=== PATIENT | male | born 1960 | race Two or more races ===

== ENCOUNTER 2021-09-02 11:28 | Inpatient (IN) | payer BC, OTHER ==
[~2021-09-02] VITALS: Ht 172.7 cm; Wt 121.0 kg
[2021-09-02] MEDS ORDERED: methylPREDNISolone SOD SUCC 125 MG/2 ML VL IV ONE (11:45)
[2021-09-02 12:27] LABS: Basophils # (auto) 0 10 ^3/uL (0-0.2); Basophils % (auto) 0.3 % (0.0-2.0); Eosinophils # (auto) 0.4 10 ^3/uL (0-0.8); Eosinophils % (auto) 3.9 % (0.0-7.0); Hematocrit 50.7 % (41.0-53.0); Hemoglobin 16.3 g/dL (13.5-17.5); Lymphocytes # (auto) 2.4 10 ^3/uL (0.4-5.4); Lymphocytes % (auto) 25.2 % (10.0-50.0); Mean Corpuscular Hemoglobin 25.8 pg (28.0-32.0); Mean Corpuscular Hgb Conc. 32.1 g/dL (32.0-36.0); Mean Corpuscular Volume 80.2 fL (80.0-100.0); Monocytes % (auto) 9.9 % (0.0-12.0); Neutrophils # (auto) 5.9 10 ^3/uL (1.6-8.6); Neutrophils % (auto) 60.7 % (37.0-80.0); Nucleated Red Blood Cells % 0.2 %; Red Blood Cells 6.32 10^6/uL (4.5-5.90); Red Cell Distribution Width 16.4 % (11.8-14.3); White Blood Cell 9.6 10^3/uL (4.4-10.8)
[2021-09-02 12:58] LABS: Albumin 3.4 g/dL (3.4-5.0); Calcium 8.7 mg/dL (8.5-10.1); Potassium 4.5 mmol/L (3.5-5.1)
[2021-09-02 13:06] LABS: BUN/Creatinine Ratio 15.9; Total Protein 7.6 g/dL (6.4-8.2)
[2021-09-02 16:29] LABS: Urine Bacteria NONE SEEN /hpf (None Seen); Urine Blood 1+ /uL (Negative); Urine Specific Gravity 1.009 (1.001-1.035); Urine WBC <1 /hpf (0 - 3)
[2021-09-02] MEDS ORDERED: TIOT1AER IN (16:57)
[2021-09-02] MEDS ORDERED: MAGN400T40 PO (16:57)
[2021-09-02] MEDS ORDERED: THIA100T10 PO (16:57)
[2021-09-02] MEDS ORDERED: RIV20T PO (16:57)
[2021-09-02] MEDS ORDERED: METO25TA5 PO (16:57)
[2021-09-02] MEDS ORDERED: ALBUAER3 IN (16:57)
[2021-09-02] MEDS ORDERED: FOLI1TAB6 PO (16:57)
[2021-09-02] MEDS ORDERED: FLUT1AER3 IN (16:57)
[2021-09-02] MEDS ORDERED: MORPHINE SULFATE INJECTION 2 MG/ML SYRG IV PRN (17:00)
[2021-09-02] MEDS ORDERED: NITROGLYCERIN 0.4 MG SL TAB SL PRN (17:00)
[2021-09-02] MEDS: FUROSEMIDE 100 MG/10ML VIAL IV SCH (18:05)
[2021-09-02 22:00] VITALS: BP 130/79
[2021-09-03 05:00] VITALS: BP 129/78
[2021-09-03 06:03] LABS: Basophils # (auto) 0 10 ^3/uL (0-0.2); Eosinophils # (auto) 0 10 ^3/uL (0-0.8); Lymphocytes # (auto) 1.4 10 ^3/uL (0.4-5.4); Mean Corpuscular Volume 79.9 fL (80.0-100.0); Monocytes # (auto) 0.5 10 ^3/uL (0-1.3); Nucleated Red Blood Cells % 0.1 %; White Blood Cell 10.3 10^3/uL (4.4-10.8)
[2021-09-03] MEDS: FUROSEMIDE 100 MG/10ML VIAL IV SCH ×2 (06:06→18:00)
[2021-09-03 06:07] LABS: Basophils % (auto) 0.1 % (0.0-2.0); Hematocrit 49.4 % (41.0-53.0); Hemoglobin 15.8 g/dL (13.5-17.5); Lymphocytes % (auto) 13.4 % (10.0-50.0); Mean Corpuscular Hemoglobin 25.6 pg (28.0-32.0); Mean Corpuscular Hgb Conc. 32.1 g/dL (32.0-36.0); Monocytes % (auto) 5.3 % (0.0-12.0); Neutrophils # (auto) 8.4 10 ^3/uL (1.6-8.6); Neutrophils % (auto) 81.2 % (37.0-80.0); Red Blood Cells 6.18 10^6/uL (4.5-5.90); Red Cell Distribution Width 16.4 % (11.8-14.3)
[2021-09-03 06:15] LABS: Albumin 3.3 g/dL (3.4-5.0); Potassium 4.7 mmol/L (3.5-5.1)
[2021-09-03 06:19] LABS: Total Protein 7.7 g/dL (6.4-8.2)
[2021-09-03 06:29] LABS: Bilirubin, Total 0.7 mg/dL (0.2-1.0)
[2021-09-03] MEDS ORDERED: DEXTROSE (50%) 50ML SYRG IV PRN (07:30)
[2021-09-03 09:00] VITALS: BP 114/73
[2021-09-03] MEDS ORDERED: ENOXAPARIN SOD 40 MG/0.4 ML SYRINGE SC SCH (10:00)
[2021-09-03] MEDS: InsuLIN REG 1unit/0.01ml Soln (100units/ml) SC SCH ×3 (11:30→22:42)
[2021-09-03] MEDS: ACCU-CHEK COMFORT CURVE STRIP VI SCH ×3 (11:30→22:41)
[2021-09-03 13:00] VITALS: BP 145/82
[2021-09-03] MEDS: METOPROLOL TARTRATE 25 MG TAB PO SCH ×2 (14:00→22:41)
[2021-09-03] MEDS: RIVAROXABAN 20 MG TAB PO SCH (18:00)
[2021-09-03 22:00] VITALS: BP 139/65
[2021-09-04 05:00] VITALS: BP 121/85
[2021-09-04] MEDS: METOPROLOL TARTRATE 25 MG TAB PO SCH ×3 (06:44→22:27)
[2021-09-04] MEDS: InsuLIN REG 1unit/0.01ml Soln (100units/ml) SC SCH ×4 (06:44→22:00)
[2021-09-04] MEDS: ACCU-CHEK COMFORT CURVE STRIP VI SCH ×4 (06:44→22:27)
[2021-09-04] MEDS: cefTRIAXone 1GM/50ML D5W 50 ML IV SCH (09:00)
[2021-09-04] MEDS: AZITHROMYCIN 250 MG TAB PO SCH (10:00)
[2021-09-04] MEDS: FUROSEMIDE 100 MG/10ML VIAL IV SCH (10:00)
[2021-09-04 12:00] VITALS: BP 127/75
[2021-09-04 16:00] VITALS: BP 121/88
[2021-09-04] MEDS: RIVAROXABAN 20 MG TAB PO SCH (18:00)
[2021-09-04 22:00] VITALS: BP 133/85
[2021-09-05 05:00] VITALS: BP 111/80
[2021-09-05] MEDS: InsuLIN REG 1unit/0.01ml Soln (100units/ml) SC SCH ×4 (06:33→22:00)
[2021-09-05] MEDS: ACCU-CHEK COMFORT CURVE STRIP VI SCH ×4 (06:33→22:49)
[2021-09-05] MEDS: METOPROLOL TARTRATE 25 MG TAB PO SCH ×3 (06:42→22:57)
[2021-09-05 08:16] LABS: INR 1.32 (0.9-1.15)
[2021-09-05 08:31] VITALS: BP 107/71
[2021-09-05] MEDS: cefTRIAXone 1GM/50ML D5W 50 ML IV SCH ×2 (10:20→10:34)
[2021-09-05] MEDS: FUROSEMIDE 100 MG/10ML VIAL IV SCH (10:21)
[2021-09-05] MEDS: AZITHROMYCIN 250 MG TAB PO SCH (10:21)
[2021-09-05] MEDS ORDERED: TIOT1AER IN (10:37)
[2021-09-05] MEDS ORDERED: ALBUAER3 IN (10:37)
[2021-09-05 13:00] VITALS: BP 129/88
[2021-09-05] MEDS ORDERED: ALBUTEROL SULF 2.5 MG/0.5ML(0.5%) NEB SOLN NEB PRN (15:00)
[2021-09-05] MEDS ORDERED: IPRATROPIUM BROM 0.5 MG/2.5ML INH SOL NEB PRN (15:00)
[2021-09-05] MEDS ORDERED: THIAMINE HCL 100 MG TAB PO ONE (15:00)
[2021-09-05] MEDS ORDERED: FOLIC ACID 1 MG TAB PO ONE (15:00)
[2021-09-05 16:49] VITALS: BP 115/70
[2021-09-05] MEDS: RIVAROXABAN 20 MG TAB PO SCH (17:31)
[2021-09-05 22:00] VITALS: BP 118/74
[2021-09-05] MEDS ORDERED: BUDESONIDE (INHALATION) 0.5 MG/2 ML NEB NEB SCH (22:00)
[2021-09-05] MEDS: guaiFENesin-DM 100/10mg/5ml SYR PO PRN (23:03)
[2021-09-06 05:00] VITALS: BP 95/67
[2021-09-06] MEDS: ACCU-CHEK COMFORT CURVE STRIP VI SCH ×3 (06:28→17:43)
[2021-09-06] MEDS: InsuLIN REG 1unit/0.01ml Soln (100units/ml) SC SCH ×4 (06:28→22:00)
[2021-09-06] MEDS: METOPROLOL TARTRATE 25 MG TAB PO SCH ×2 (06:41→17:30)
[2021-09-06 07:30] LABS: Potassium 4.2 mmol/L (3.5-5.1)
[2021-09-06 07:35] LABS: Basophils # (auto) 0 10 ^3/uL (0-0.2); Basophils % (auto) 0.3 % (0.0-2.0); Eosinophils # (auto) 0.4 10 ^3/uL (0-0.8); Hemoglobin 15.6 g/dL (13.5-17.5); Mean Corpuscular Hemoglobin 25.8 pg (28.0-32.0); Monocytes # (auto) 1.3 10 ^3/uL (0-1.3); Nucleated Red Blood Cells % 0.2 %; Red Cell Distribution Width 16.5 % (11.8-14.3)
[2021-09-06 07:39] LABS: Eosinophils % (auto) 4.2 % (0.0-7.0); Hematocrit 49.2 % (41.0-53.0); Lymphocytes # (auto) 2.3 10 ^3/uL (0.4-5.4); Lymphocytes % (auto) 22.8 % (10.0-50.0); Mean Corpuscular Hgb Conc. 31.8 g/dL (32.0-36.0); Mean Corpuscular Volume 81.3 fL (80.0-100.0); Neutrophils # (auto) 6.1 10 ^3/uL (1.6-8.6); Neutrophils % (auto) 59.7 % (37.0-80.0); Red Blood Cells 6.06 10^6/uL (4.5-5.90); White Blood Cell 10.2 10^3/uL (4.4-10.8)
[2021-09-06 07:40] LABS: Albumin 3.1 g/dL (3.4-5.0); BUN/Creatinine Ratio 30.3; Bilirubin, Total 1.2 mg/dL (0.2-1.0); Calcium 8.5 mg/dL (8.5-10.1); Magnesium 2.4 mg/dL (1.6-2.6); Total Protein 7.1 g/dL (6.4-8.2)
[2021-09-06 07:50] LABS: INR 1.21 (0.9-1.15)
[2021-09-06 09:00] VITALS: BP 119/59
[2021-09-06] MEDS: FUROSEMIDE 100 MG/10ML VIAL IV SCH (10:16)
[2021-09-06] MEDS: FOLIC ACID 1 MG TAB PO SCH (10:17)
[2021-09-06] MEDS: AZITHROMYCIN 250 MG TAB PO SCH (10:17)
[2021-09-06] MEDS: THIAMINE HCL 100 MG TAB PO SCH (10:17)
[2021-09-06 13:00] VITALS: BP 121/60
[2021-09-06] MEDS: RIVAROXABAN 20 MG TAB PO SCH (17:43)
[2021-09-06] MEDS: guaiFENesin-DM 100/10mg/5ml SYR PO PRN (20:31)
[2021-09-07] MEDS: ACCU-CHEK COMFORT CURVE STRIP VI SCH ×3 (05:52→13:00)
[2021-09-07] MEDS: METOPROLOL TARTRATE 25 MG TAB PO SCH (05:53)
[2021-09-07] MEDS: InsuLIN REG 1unit/0.01ml Soln (100units/ml) SC SCH ×2 (07:00→11:30)
[2021-09-07 09:00] VITALS: BP 11/74
[2021-09-07] MEDS: FUROSEMIDE 100 MG/10ML VIAL IV SCH (10:20)
[2021-09-07] MEDS: FOLIC ACID 1 MG TAB PO SCH (10:21)
[2021-09-07] MEDS: AZITHROMYCIN 250 MG TAB PO SCH (10:21)
[2021-09-07] MEDS: THIAMINE HCL 100 MG TAB PO SCH (10:21)
[2021-09-07] MEDS ORDERED: METF-370 PO (11:54)
[2021-09-07] MEDS ORDERED: FURO1TAB33 PO (11:54)
[2021-09-07] MEDS ORDERED: DOXY-286 PO (11:56)
[2021-09-07] MEDS: cefTRIAXone 1GM/50ML D5W 50 ML IV SCH (12:54)
[2021-09-07 13:00] VITALS: BP 115/68
[2021-09-07 15:41] VITALS: BP 115/68
== END 2021-09-07 18:55 | disposition home or self-care (01) | DRG 193 ==
LOC: ER 11:28 → TELE 16:48 → TELE-WESTW 20:56
PROVIDERS: ADMIT Internal Medicine; ATTEND Internal Medicine
DX: J18.9 Pneumonia, unspecified organism (principal); J96.01 Acute respiratory failure with hypoxia; I50.33 Acute on chronic diastolic (congestive) heart failure; N17.9 Acute kidney failure, unspecified; Z68.41 Body mass index [BMI] 40.0-44.9, adult; J44.0 Chronic obstructive pulmonary disease with (acute) lower respiratory infection; J44.1 Chronic obstructive pulmonary disease with (acute) exacerbation; N18.9 Chronic kidney disease, unspecified; E11.22 Type 2 diabetes mellitus with diabetic chronic kidney disease; E66.01 Morbid (severe) obesity due to excess calories; I48.0 Paroxysmal atrial fibrillation; Z20.822 Contact with and (suspected) exposure to COVID-19; R53.81 Other malaise; Z79.899 Other long term (current) drug therapy; Z83.3 Family history of diabetes mellitus; Z90.49 Acquired absence of other specified parts of digestive tract
CPT/HCPCS: 36415; 36600; 71045; 76700; 80053; 80061; 81001; 82306; 82728; 82805; 82962; 83036; 83605; 83735; 83880; 84443; 84484; 85025; 85379; 85610; 86141; 87040; 87426; 93005; 93306; 96365; 96375; 97116; 97163; 97530; G0378; J0696; J1815

== ENCOUNTER 2023-05-26 09:20 | Inpatient (IN) | payer BC ==
[~2023-05-26] VITALS: Ht 172.7 cm; Wt 105.5 kg
[~2023-05-26 09:20] MED LIST: ALBUAER3 IN; DOXY-286 PO; FLUT1AER3 IN; FOLI-119 PO; MAGN400T40 PO; METF-370 PO; METO25TA5 PO; RIV20T PO; THIA100T10 PO; TIOT1AER IN
[2023-05-26 10:06] LABS: Basophils # (auto) 0 10 ^3/uL (0-0.2); Basophils % (auto) 0.4 % (0.0-2.0); Eosinophils # (auto) 0.1 10 ^3/uL (0-0.8); Eosinophils % (auto) 1.2 % (0.0-7.0); Hemoglobin 15.9 g/dL (13.5-17.5); Lymphocytes # (auto) 2.5 10 ^3/uL (0.4-5.4); Mean Corpuscular Hemoglobin 27.4 pg (28.0-32.0); Mean Corpuscular Hgb Conc. 32.4 g/dL (32.0-36.0); Mean Corpuscular Volume 84.6 fL (80.0-100.0); Monocytes # (auto) 1.3 10 ^3/uL (0-1.3); Monocytes % (auto) 11.3 % (0.0-12.0); Neutrophils # (auto) 7.5 10 ^3/uL (1.6-8.6); Neutrophils % (auto) 65.1 % (37.0-80.0); Nucleated Red Blood Cells % 0.3 %; Red Blood Cells 5.79 10^6/uL (4.5-5.90); Red Cell Distribution Width 18.4 % (11.8-14.3); White Blood Cell 11.5 10^3/uL (4.4-10.8)
[2023-05-26] MEDS ORDERED: SODIUM CHLORIDE 0.9% 1,000 ML IV ONE (10:15)
[2023-05-26 10:22] LABS: Alanine Aminotransferase 21 U/L (7-40); Albumin 4.4 g/dL (3.2-4.8); Alkaline Phosphatase 106 U/L (46-116); Anion Gap 7 (5-15); Aspartate Aminotransferase 18 U/L (13-40); BUN/Creatinine Ratio 11.5 (10.0-20.0); Bilirubin, Total 1.4 mg/dL (0.2-1.0); Blood Urea Nitrogen 11 mg/dL (9-23); Calcium 8.9 mg/dL (8.7-10.4); Carbon Dioxide 26 mmol/L (20-30); Chloride 100 mmol/L (98-107); Glucose 105 mg/dL (74-106); Potassium 3.9 mmol/L (3.5-5.1); Sodium 133 mmol/L (136-145); Total Protein 7.3 g/dL (5.7-8.2)
[2023-05-26 10:52] LABS: INR 1.13 (0.9-1.15); Partial Thromboplastin Time 35.2 SEC (24.5-34.5); Prothrombin Time 11.8 sec (9.3-11.8)
[2023-05-26 10:54] LABS: Urine Bacteria FEW /hpf (None Seen); Urine Blood 3+ /uL (Negative); Urine Clarity HAZY (Clear); Urine Color Yellow (Yellow); Urine Protein, UAD 1+ (Negative); Urine Specific Gravity 1.009 (1.001-1.035); Urine Urobilinogen Normal (Negative); Urine WBC 131 /hpf (0 - 3); Urine WBC Clumps PRESENT /hpf (None Seen)
[2023-05-26 10:58] LABS: Lipase 45 U/L (12-53); Magnesium 1.7 mg/dL (1.6-2.6)
[2023-05-26] MEDS ORDERED: cefTRIAXone 1GM/50ML D5W 50 ML IV ONE (13:45)
[2023-05-26] MEDS ORDERED: DEXTROSE (50%) 50ML SYRG IV PRN (14:30)
[2023-05-26] MEDS ORDERED: ACETAMINOPHEN 325 MG TAB PO PRN (14:30)
[2023-05-26 15:13] LABS: Triglycerides 118 mg/dL (< 150)
[2023-05-26 15:14] LABS: LDL Cholesterol 111 mg/dL (< 100)
[2023-05-26 15:15] LABS: Cholesterol 161 mg/dL (< 200); HDL Cholesterol 38 mg/dL (40-59)
[2023-05-26] MEDS: SODIUM CHLORIDE 0.9% 1,000 ML IV SCH ×2 (15:40→18:22)
[2023-05-26] MEDS: InsuLIN REG 1unit/0.01ml Soln (100units/ml) SC SCH ×2 (17:00→21:38)
[2023-05-26] MEDS: ACCU-CHEK COMFORT CURVE STRIP VI SCH ×2 (17:00→21:35)
[2023-05-26 17:28] VITALS: PULSE 106; RESP 16; O2SAT 95
[2023-05-26] MEDS: RIVAROXABAN 20 MG TAB PO SCH (18:18)
[2023-05-26 18:30] VITALS: PULSE 110; RESP 16; O2SAT 93
[2023-05-26 18:34] VITALS: BP 146/94; PULSE 110; RESP 16; TEMP 98.7; O2SAT 93
[2023-05-26] MEDS: HYDROcodone-ACET 5/325MG TAB PO PRN (18:43)
[2023-05-26] MEDS: METOPROLOL TARTRATE 25 MG TAB PO SCH (19:44)
[2023-05-26 20:00] VITALS: BP 136/75; PULSE 120; PULSE 131; RESP 20; TEMP 97.9; O2SAT 94
[2023-05-26 22:58] VITALS: BP 122/79; PULSE 99; RESP 20; TEMP 97.9; O2SAT 94
[2023-05-27] MEDS: HYDROcodone-ACET 5/325MG TAB PO PRN ×5 (01:17→23:02)
[2023-05-27] MEDS: SODIUM CHLORIDE 0.9% 1,000 ML IV SCH ×3 (03:30→23:20)
[2023-05-27 05:00] VITALS: BP 125/74; PULSE 89; RESP 18; TEMP 97.3; O2SAT 90
[2023-05-27] MEDS: InsuLIN REG 1unit/0.01ml Soln (100units/ml) SC SCH ×4 (05:57→22:00)
[2023-05-27] MEDS: ACCU-CHEK COMFORT CURVE STRIP VI SCH ×4 (05:57→22:54)
[2023-05-27 06:15] LABS: Basophils # (auto) 0.1 10 ^3/uL (0-0.2); Basophils % (auto) 0.5 % (0.0-2.0); Eosinophils # (auto) 0.1 10 ^3/uL (0-0.8); Eosinophils % (auto) 0.6 % (0.0-7.0); Hematocrit 48.3 % (41.0-53.0); Hemoglobin 15.4 g/dL (13.5-17.5); Lymphocytes # (auto) 2.5 10 ^3/uL (0.4-5.4); Lymphocytes % (auto) 20.2 % (10.0-50.0); Mean Corpuscular Hemoglobin 27.2 pg (28.0-32.0); Mean Corpuscular Hgb Conc. 31.9 g/dL (32.0-36.0); Mean Corpuscular Volume 85.2 fL (80.0-100.0); Monocytes # (auto) 1.3 10 ^3/uL (0-1.3); Monocytes % (auto) 10.9 % (0.0-12.0); Neutrophils # (auto) 8.3 10 ^3/uL (1.6-8.6); Neutrophils % (auto) 67.8 % (37.0-80.0); Nucleated Red Blood Cells % 0.1 %; Red Blood Cells 5.68 10^6/uL (4.5-5.90); Red Cell Distribution Width 18.4 % (11.8-14.3); White Blood Cell 12.3 10^3/uL (4.4-10.8)
[2023-05-27] MEDS: METOPROLOL TARTRATE 25 MG TAB PO SCH ×3 (06:23→22:54)
[2023-05-27 06:24] LABS: Alanine Aminotransferase 19 U/L (7-40); Albumin 4.3 g/dL (3.2-4.8); Alkaline Phosphatase 97 U/L (46-116); Anion Gap 8 (5-15); Aspartate Aminotransferase 19 U/L (13-40); BUN/Creatinine Ratio 12.2 (10.0-20.0); Blood Urea Nitrogen 12 mg/dL (9-23); Calcium 8.6 mg/dL (8.7-10.4); Carbon Dioxide 25 mmol/L (20-30); Chloride 100 mmol/L (98-107); Glucose 97 mg/dL (74-106); Potassium 4.4 mmol/L (3.5-5.1); Sodium 133 mmol/L (136-145)
[2023-05-27 06:25] LABS: Bilirubin, Total 1.2 mg/dL (0.2-1.0); Total Protein 7.1 g/dL (5.7-8.2)
[2023-05-27 08:00] VITALS: BP 125/79; PULSE 69; PULSE 82; PULSE 89; RESP 18; TEMP 97.8; O2SAT 94
[2023-05-27] MEDS: cefTRIAXone 1GM/50ML D5W 50 ML IV SCH (09:18)
[2023-05-27] MEDS ORDERED: THIAMINE HCL 100 MG TAB PO SCH (10:00)
[2023-05-27] MEDS ORDERED: FOLIC ACID 1 MG TAB PO SCH (10:00)
[2023-05-27] MEDS ORDERED: MAGNESIUM OXIDE 400 MG TAB PO SCH (10:00)
[2023-05-27 12:58] VITALS: BP 117/62; PULSE 74; RESP 19; TEMP 97; O2SAT 94
[2023-05-27] MEDS: chlordiazePOXIDE HCL 25 MG CAP PO SCH ×2 (13:52→22:54)
[2023-05-27 17:03] VITALS: BP 116/60; PULSE 80; RESP 19; TEMP 97.9; O2SAT 98
[2023-05-27] MEDS: RIVAROXABAN 20 MG TAB PO SCH (17:19)
[2023-05-27] MEDS ORDERED: TAMSULOSIN HYDROCHLORIDE 0.4 MG CAP PO SCH (18:54)
[2023-05-27 20:00] VITALS: PULSE 72; RESP 20; O2SAT 94
[2023-05-27 22:00] VITALS: BP 138/72; PULSE 68; RESP 17; TEMP 96.5; O2SAT 95
[2023-05-28 05:00] VITALS: BP 118/82; PULSE 83; RESP 16; TEMP 97.4; O2SAT 92
[2023-05-28] MEDS: chlordiazePOXIDE HCL 25 MG CAP PO SCH (06:08)
[2023-05-28] MEDS: METOPROLOL TARTRATE 25 MG TAB PO SCH (06:09)
[2023-05-28] MEDS: ACCU-CHEK COMFORT CURVE STRIP VI SCH (06:09)
[2023-05-28] MEDS: InsuLIN REG 1unit/0.01ml Soln (100units/ml) SC SCH (06:11)
[2023-05-28] MEDS: SODIUM CHLORIDE 0.9% 1,000 ML IV SCH (06:12)
[2023-05-28 08:00] VITALS: BP 118/69; PULSE 69; PULSE 76; RESP 18; TEMP 97.4; O2SAT 95
[2023-05-28] MEDS ORDERED: THIA100T13 PO (08:44)
[2023-05-28] MEDS ORDERED: TAMS-35 PO (08:44)
[2023-05-28] MEDS ORDERED: CIPR-173 PO (08:44)
[2023-05-28] MEDS ORDERED: CHL25C PO (08:44)
[2023-05-28 09:00] VITALS: BP 117/69; PULSE 76; RESP 18; TEMP 97.4; O2SAT 95
[2023-05-28] MEDS: cefTRIAXone 1GM/50ML D5W 50 ML IV SCH (09:25)
[2023-05-28] MEDS ORDERED: chlordiazePOXIDE HCL 25 MG CAP PO SCH (10:00)
[2023-05-28] MEDS: HYDROcodone-ACET 5/325MG TAB PO PRN (10:47)
[2023-05-28] MEDS ORDERED: FOLIC ACID 1 MG, MULTIPLE VITAMIN 10 ML, MAGNESIUM SULF SDV 50% 8 MEQ, THIAMINE INJ 100... INJ SCH ×5 (12:00)
[2023-05-29] MEDS ORDERED: chlordiazePOXIDE HCL 25 MG CAP PO SCH (10:00)
[2023-05-30] MEDS ORDERED: chlordiazePOXIDE HCL 25 MG CAP PO SCH (07:00)
== END 2023-05-28 12:05 | disposition home or self-care (01) | DRG 689 ==
LOC: ER 09:20 → TELE 14:43 → TELE-CENTR 18:05
PROVIDERS: ADMIT Nurse Practitioner Family; ATTEND Family Medicine
DX: N30.01 Acute cystitis with hematuria (principal); I50.33 Acute on chronic diastolic (congestive) heart failure; N12 Tubulo-interstitial nephritis, not specified as acute or chronic; J44.1 Chronic obstructive pulmonary disease with (acute) exacerbation; N17.9 Acute kidney failure, unspecified; I11.0 Hypertensive heart disease with heart failure; N40.0 Benign prostatic hyperplasia without lower urinary tract symptoms; B96.20 Unspecified Escherichia coli [E. coli] as the cause of diseases classified elsewhere; E86.0 Dehydration; I48.91 Unspecified atrial fibrillation; E66.01 Morbid (severe) obesity due to excess calories; F10.129 Alcohol abuse with intoxication, unspecified; Y90.9 Presence of alcohol in blood, level not specified; E11.65 Type 2 diabetes mellitus with hyperglycemia; Z79.2 Long term (current) use of antibiotics; Z79.899 Other long term (current) drug therapy; Z79.01 Long term (current) use of anticoagulants; Z68.35 Body mass index [BMI] 35.0-35.9, adult; Z83.3 Family history of diabetes mellitus
CPT/HCPCS: 36415; 71046; 74176; 80053; 80061; 80320; 81001; 82962; 83036; 83690; 83735; 84443; 85025; 85610; 85730; 87040; 87086; 87088; 87186; 93005; G0378; J0696; J1815

== ENCOUNTER 2023-05-29 05:31 | Inpatient (IN) | payer BC ==
[~2023-05-29] VITALS: Ht 172.7 cm; Wt 116.5 kg
[~2023-05-29 05:31] MED LIST changes: +CHL25C PO; +CIPR-173 PO; +TAMS-35 PO; +THIA100T13 PO
[2023-05-29 06:48] LABS: Urine Bacteria FEW /hpf (None Seen); Urine Blood Negative /uL (Negative); Urine Clarity Clear (Clear); Urine Color Colorless (Yellow); Urine Protein, UAD Negative (Negative); Urine Specific Gravity 1.006 (1.001-1.035); Urine Urobilinogen Normal (Negative); Urine WBC 3 /hpf (0 - 3)
[2023-05-29] MEDS ORDERED: FUROSEMIDE 40 MG/4 ML VIAL IV ONE (07:30)
[2023-05-29] MEDS ORDERED: cefTRIAXone 1GM/50ML D5W 50 ML IV ONE (07:45)
[2023-05-29 08:33] LABS: Basophils # (auto) 0 10 ^3/uL (0-0.2); Basophils % (auto) 0.2 % (0.0-2.0); Eosinophils # (auto) 0 10 ^3/uL (0-0.8); Eosinophils % (auto) 0.2 % (0.0-7.0); Hematocrit 44.5 % (41.0-53.0); Hemoglobin 14.2 g/dL (13.5-17.5); Lymphocytes # (auto) 1.1 10 ^3/uL (0.4-5.4); Lymphocytes % (auto) 10.5 % (10.0-50.0); Mean Corpuscular Hemoglobin 27.4 pg (28.0-32.0); Mean Corpuscular Hgb Conc. 31.9 g/dL (32.0-36.0); Mean Corpuscular Volume 85.9 fL (80.0-100.0); Monocytes # (auto) 1.2 10 ^3/uL (0-1.3); Monocytes % (auto) 11.6 % (0.0-12.0); Neutrophils % (auto) 77.5 % (37.0-80.0); Nucleated Red Blood Cells % 0.1 %; Red Blood Cells 5.18 10^6/uL (4.5-5.90); Red Cell Distribution Width 18.2 % (11.8-14.3); White Blood Cell 10.3 10^3/uL (4.4-10.8)
[2023-05-29 08:50] VITALS: PULSE 110; RESP 20; O2SAT 88; O2SAT 94
[2023-05-29 09:12] LABS: Alanine Aminotransferase 23 U/L (7-40); Albumin 4.1 g/dL (3.2-4.8); Alkaline Phosphatase 84 U/L (46-116); Anion Gap 9 (5-15); Aspartate Aminotransferase 20 U/L (13-40); BUN/Creatinine Ratio 14.1 (10.0-20.0); Bilirubin, Total 0.7 mg/dL (0.2-1.0); Blood Urea Nitrogen 12 mg/dL (9-23); Calcium 8.8 mg/dL (8.5-10.1); Carbon Dioxide 22 mmol/L (20-30); Chloride 106 mmol/L (98-107); Glucose 107 mg/dL (74-106); Potassium 4.3 mmol/L (3.5-5.1); Sodium 137 mmol/L (136-145); Total Protein 6.4 g/dL (5.7-8.2)
[2023-05-29] MEDS ORDERED: DEXTROSE (50%) 50ML SYRG IV PRN (11:15)
[2023-05-29] MEDS ORDERED: NITROGLYCERIN 0.4 MG SL TAB SL PRN (11:15)
[2023-05-29] MEDS ORDERED: MORPHINE SULFATE INJ 2 MG/ml SYRG IV PRN (11:15)
[2023-05-29] MEDS ORDERED: ACETAMINOPHEN 325 MG TAB PO PRN (11:15)
[2023-05-29] MEDS: ACCU-CHEK COMFORT CURVE STRIP VI SCH ×2 (11:30→17:00)
[2023-05-29] MEDS: InsuLIN REG 1unit/0.01ml Soln (100units/ml) SC SCH ×2 (11:30→20:33)
[2023-05-29] MEDS ORDERED: ALBUTEROL MEDNEB 2.5 mg/3ml NEB NEB PRN (11:45)
[2023-05-29 11:46] VITALS: BP 144/79; PULSE 108; RESP 18; TEMP 98.8; O2SAT 91
[2023-05-29 11:52] VITALS: O2SAT 91
[2023-05-29 19:21] VITALS: O2SAT 94
[2023-05-29] MEDS: chlordiazePOXIDE HCL 25 MG CAP PO SCH (20:30)
[2023-05-29] MEDS: METOPROLOL TARTRATE 25 MG TAB PO SCH (20:31)
[2023-05-29] MEDS: HYDROcodone-ACET 5/325MG TAB PO PRN (21:28)
[2023-05-30] VITALS (8 sets, daily range): BP systolic 133; BP diastolic 85; PULSE 90–109; RESP 20–28; TEMP 97.7; O2SAT 92–96
[2023-05-30] MEDS: InsuLIN REG 1unit/0.01ml Soln (100units/ml) SC SCH ×5 (00:23→22:55)
[2023-05-30] MEDS: ACCU-CHEK COMFORT CURVE STRIP VI SCH ×5 (00:23→22:40)
[2023-05-30] MEDS: chlordiazePOXIDE HCL 25 MG CAP PO SCH ×4 (00:36→22:41)
[2023-05-30] MEDS: METOPROLOL TARTRATE 25 MG TAB PO SCH ×4 (00:36→22:41)
[2023-05-30] MEDS: metFORMIN HYDROCHLORIDE 500 MG TAB PO SCH ×3 (00:37→22:41)
[2023-05-30] MEDS: HYDROcodone-ACET 5/325MG TAB PO PRN (04:04)
[2023-05-30 07:03] LABS: Basophils # (auto) 0 10 ^3/uL (0-0.2); Basophils % (auto) 0.5 % (0.0-2.0); Eosinophils # (auto) 0.3 10 ^3/uL (0-0.8); Eosinophils % (auto) 3.6 % (0.0-7.0); Hematocrit 42.8 % (41.0-53.0); Lymphocytes % (auto) 23.3 % (10.0-50.0); Mean Corpuscular Hemoglobin 28.1 pg (28.0-32.0); Mean Corpuscular Hgb Conc. 32.6 g/dL (32.0-36.0); Monocytes # (auto) 1.2 10 ^3/uL (0-1.3); Monocytes % (auto) 13.4 % (0.0-12.0); Neutrophils # (auto) 5.2 10 ^3/uL (1.6-8.6); Neutrophils % (auto) 59.2 % (37.0-80.0); Nucleated Red Blood Cells % 0.2 %; Red Blood Cells 4.98 10^6/uL (4.5-5.90); Red Cell Distribution Width 18.2 % (11.8-14.3); White Blood Cell 8.8 10^3/uL (4.4-10.8)
[2023-05-30 07:10] LABS: Alanine Aminotransferase 21 U/L (7-40); Alkaline Phosphatase 73 U/L (46-116); Anion Gap 8 (5-15); Aspartate Aminotransferase 11 U/L (13-40); BUN/Creatinine Ratio 10.7 (10.0-20.0); Bilirubin, Total 0.9 mg/dL (0.2-1.0); Blood Urea Nitrogen 11 mg/dL (9-23); Calcium 8.7 mg/dL (8.5-10.1); Carbon Dioxide 27 mmol/L (20-30); Chloride 103 mmol/L (98-107); Glucose 108 mg/dL (74-106); Potassium 3.4 mmol/L (3.5-5.1); Sodium 138 mmol/L (136-145); Total Protein 6.6 g/dL (5.7-8.2)
[2023-05-30] MEDS: cefTRIAXone 1GM/50ML D5W 50 ML IV SCH (09:43)
[2023-05-30] MEDS: RIVAROXABAN 20 MG TAB PO SCH (10:34)
[2023-05-30] MEDS: TAMSULOSIN HYDROCHLORIDE 0.4 MG CAP PO SCH (10:35)
[2023-05-30] MEDS: FOLIC ACID 1 MG TAB PO SCH (10:35)
[2023-05-30] MEDS: MAGNESIUM OXIDE 400 MG TAB PO SCH (10:35)
[2023-05-30] MEDS: THIAMINE HCL 100 MG TAB PO SCH (10:35)
[2023-05-30] MEDS ORDERED: FUROSEMIDE 20 MG/2 ML VIAL IV ONE (14:00)
[2023-05-30] MEDS: FUROSEMIDE 20 MG/2 ML VIAL IV SCH (18:31)
[2023-05-31] VITALS (10 sets, daily range): BP systolic 112–134; BP diastolic 68–85; PULSE 76–99; RESP 17–19; TEMP 97.1–98.5; O2SAT 90–98
[2023-05-31] MEDS: FUROSEMIDE 20 MG/2 ML VIAL IV SCH ×2 (05:52→17:44)
[2023-05-31] MEDS: chlordiazePOXIDE HCL 25 MG CAP PO SCH ×3 (05:52→21:46)
[2023-05-31] MEDS: HYDROcodone-ACET 5/325MG TAB PO PRN ×2 (05:52→20:34)
[2023-05-31] MEDS: METOPROLOL TARTRATE 25 MG TAB PO SCH ×3 (05:52→21:46)
[2023-05-31] MEDS: ACCU-CHEK COMFORT CURVE STRIP VI SCH ×4 (06:00→22:00)
[2023-05-31] MEDS: InsuLIN REG 1unit/0.01ml Soln (100units/ml) SC SCH ×4 (06:00→21:42)
[2023-05-31 06:22] LABS: Alanine Aminotransferase 28 U/L (7-40); Alkaline Phosphatase 71 U/L (46-116); Calcium 8.8 mg/dL (8.5-10.1); Carbon Dioxide 26 mmol/L (20-30); Chloride 104 mmol/L (98-107); Triglycerides 93 mg/dL (< 150)
[2023-05-31 06:23] LABS: Albumin 3.7 g/dL (3.2-4.8); Anion Gap 7 (5-15); Aspartate Aminotransferase 26 U/L (13-40); BUN/Creatinine Ratio 19.1 (10.0-20.0); Bilirubin, Total 0.5 mg/dL (0.2-1.0); Blood Urea Nitrogen 17 mg/dL (9-23); Cholesterol 131 mg/dL (< 200); Glucose 87 mg/dL (74-106); HDL Cholesterol 35 mg/dL (40-59); LDL Cholesterol 81 mg/dL (< 100); Potassium 4.4 mmol/L (3.5-5.1); Sodium 137 mmol/L (136-145)
[2023-05-31 06:37] LABS: Magnesium 1.9 mg/dL (1.6-2.6)
[2023-05-31] MEDS: TAMSULOSIN HYDROCHLORIDE 0.4 MG CAP PO SCH (09:13)
[2023-05-31] MEDS: RIVAROXABAN 20 MG TAB PO SCH (09:13)
[2023-05-31] MEDS: FOLIC ACID 1 MG TAB PO SCH (09:13)
[2023-05-31] MEDS: THIAMINE HCL 100 MG TAB PO SCH (09:14)
[2023-05-31] MEDS: cefTRIAXone 1GM/50ML D5W 50 ML IV SCH (09:14)
[2023-05-31] MEDS: metFORMIN HYDROCHLORIDE 500 MG TAB PO SCH ×2 (09:14→21:45)
[2023-05-31] MEDS: MAGNESIUM OXIDE 400 MG TAB PO SCH (09:14)
[2023-06-01] VITALS (10 sets, daily range): BP systolic 101–120; BP diastolic 65–84; PULSE 71–93; RESP 14–20; TEMP 97.5–98.6; O2SAT 90–96
[2023-06-01] MEDS: METOPROLOL TARTRATE 25 MG TAB PO SCH ×3 (06:12→21:52)
[2023-06-01] MEDS: chlordiazePOXIDE HCL 25 MG CAP PO SCH ×3 (06:12→21:52)
[2023-06-01] MEDS: FUROSEMIDE 20 MG/2 ML VIAL IV SCH ×2 (06:12→18:48)
[2023-06-01] MEDS: InsuLIN REG 1unit/0.01ml Soln (100units/ml) SC SCH ×4 (06:25→22:02)
[2023-06-01] MEDS: ACCU-CHEK COMFORT CURVE STRIP VI SCH ×4 (06:25→22:03)
[2023-06-01 06:59] LABS: Anion Gap 4 (5-15); Carbon Dioxide 30 mmol/L (20-30); Chloride 102 mmol/L (98-107); Potassium 4.3 mmol/L (3.5-5.1); Sodium 136 mmol/L (136-145)
[2023-06-01 07:04] LABS: Glucose 100 mg/dL (74-106)
[2023-06-01 07:05] LABS: Blood Urea Nitrogen 11 mg/dL (9-23)
[2023-06-01 08:06] LABS: PSA Free 6.83 ng/mL
[2023-06-01] MEDS: FINASTERIDE 5 MG TAB PO SCH (09:50)
[2023-06-01] MEDS: TAMSULOSIN HYDROCHLORIDE 0.4 MG CAP PO SCH (09:51)
[2023-06-01] MEDS: metFORMIN HYDROCHLORIDE 500 MG TAB PO SCH ×2 (09:51→21:52)
[2023-06-01] MEDS: THIAMINE HCL 100 MG TAB PO SCH (09:51)
[2023-06-01] MEDS: FOLIC ACID 1 MG TAB PO SCH (09:51)
[2023-06-01] MEDS: MAGNESIUM OXIDE 400 MG TAB PO SCH (09:52)
[2023-06-01] MEDS: cefTRIAXone 1GM/50ML D5W 50 ML IV SCH (09:54)
[2023-06-01] MEDS: RIVAROXABAN 20 MG TAB PO SCH (10:00)
[2023-06-01] MEDS: HYDROcodone-ACET 5/325MG TAB PO PRN (15:33)
[2023-06-02] VITALS (10 sets, daily range): BP systolic 108–130; BP diastolic 70–84; PULSE 76–95; RESP 16–20; TEMP 97.3–99.3; O2SAT 92–95
[2023-06-02] MEDS: HYDROcodone-ACET 5/325MG TAB PO PRN (00:17)
[2023-06-02 06:07] LABS: Chloride 100 mmol/L (98-107); Potassium 4.1 mmol/L (3.5-5.1); Sodium 135 mmol/L (136-145)
[2023-06-02 06:08] LABS: Anion Gap 6 (5-15); Carbon Dioxide 29 mmol/L (20-30)
[2023-06-02 06:09] LABS: Calcium 9.3 mg/dL (8.7-10.4)
[2023-06-02 06:13] LABS: BUN/Creatinine Ratio 13.9 (10.0-20.0); Blood Urea Nitrogen 14 mg/dL (9-23); Glucose 102 mg/dL (74-106)
[2023-06-02] MEDS: FUROSEMIDE 20 MG/2 ML VIAL IV SCH (06:37)
[2023-06-02] MEDS: chlordiazePOXIDE HCL 25 MG CAP PO SCH ×3 (06:38→21:48)
[2023-06-02] MEDS: METOPROLOL TARTRATE 25 MG TAB PO SCH ×2 (06:38→22:00)
[2023-06-02] MEDS: ACCU-CHEK COMFORT CURVE STRIP VI SCH ×4 (06:43→21:55)
[2023-06-02] MEDS: InsuLIN REG 1unit/0.01ml Soln (100units/ml) SC SCH ×4 (06:43→21:54)
[2023-06-02] MEDS: cefTRIAXone 1GM/50ML D5W 50 ML IV SCH (09:55)
[2023-06-02] MEDS: MAGNESIUM OXIDE 400 MG TAB PO SCH (09:57)
[2023-06-02] MEDS: TAMSULOSIN HYDROCHLORIDE 0.4 MG CAP PO SCH (09:57)
[2023-06-02] MEDS: metFORMIN HYDROCHLORIDE 500 MG TAB PO SCH ×2 (09:57→21:48)
[2023-06-02] MEDS: THIAMINE HCL 100 MG TAB PO SCH (09:57)
[2023-06-02] MEDS: FOLIC ACID 1 MG TAB PO SCH (09:57)
[2023-06-02] MEDS: FINASTERIDE 5 MG TAB PO SCH (09:57)
[2023-06-03] VITALS (11 sets, daily range): BP systolic 113–141; BP diastolic 68–86; PULSE 60–90; RESP 14–20; TEMP 96.5–98.3; O2SAT 93–97
[2023-06-03] MEDS: FUROSEMIDE 20 MG/2 ML VIAL IV SCH ×2 (06:00→17:43)
[2023-06-03] MEDS: chlordiazePOXIDE HCL 25 MG CAP PO SCH ×3 (06:15→21:13)
[2023-06-03] MEDS: METOPROLOL TARTRATE 25 MG TAB PO SCH ×3 (06:15→21:14)
[2023-06-03] MEDS: InsuLIN REG 1unit/0.01ml Soln (100units/ml) SC SCH ×4 (06:18→21:19)
[2023-06-03] MEDS: ACCU-CHEK COMFORT CURVE STRIP VI SCH ×4 (07:00→21:19)
[2023-06-03] MEDS: cefTRIAXone 1GM/50ML D5W 50 ML IV SCH (09:00)
[2023-06-03] MEDS: TAMSULOSIN HYDROCHLORIDE 0.4 MG CAP PO SCH (09:59)
[2023-06-03] MEDS: FINASTERIDE 5 MG TAB PO SCH (09:59)
[2023-06-03] MEDS: metFORMIN HYDROCHLORIDE 500 MG TAB PO SCH ×2 (09:59→21:14)
[2023-06-03] MEDS: THIAMINE HCL 100 MG TAB PO SCH (09:59)
[2023-06-03] MEDS: FOLIC ACID 1 MG TAB PO SCH (09:59)
[2023-06-03] MEDS: MAGNESIUM OXIDE 400 MG TAB PO SCH (09:59)
[2023-06-03] MEDS: HYDROcodone-ACET 5/325MG TAB PO PRN (20:12)
[2023-06-04] VITALS (9 sets, daily range): BP systolic 98–120; BP diastolic 46–70; PULSE 66–82; RESP 17–24; TEMP 97.4–97.9; O2SAT 92–95
[2023-06-04] MEDS: chlordiazePOXIDE HCL 25 MG CAP PO SCH ×3 (05:50→21:33)
[2023-06-04] MEDS: FUROSEMIDE 20 MG/2 ML VIAL IV SCH ×2 (05:51→17:49)
[2023-06-04] MEDS: ACCU-CHEK COMFORT CURVE STRIP VI SCH ×4 (05:51→21:34)
[2023-06-04] MEDS: METOPROLOL TARTRATE 25 MG TAB PO SCH ×3 (05:51→21:33)
[2023-06-04] MEDS: InsuLIN REG 1unit/0.01ml Soln (100units/ml) SC SCH ×4 (05:55→21:35)
[2023-06-04] MEDS: HYDROcodone-ACET 5/325MG TAB PO PRN ×2 (06:31→21:32)
[2023-06-04] MEDS: cefTRIAXone 1GM/50ML D5W 50 ML IV SCH (10:13)
[2023-06-04] MEDS: FOLIC ACID 1 MG TAB PO SCH (10:13)
[2023-06-04] MEDS: FINASTERIDE 5 MG TAB PO SCH (10:13)
[2023-06-04] MEDS: THIAMINE HCL 100 MG TAB PO SCH (10:13)
[2023-06-04] MEDS: TAMSULOSIN HYDROCHLORIDE 0.4 MG CAP PO SCH (10:13)
[2023-06-04] MEDS: MAGNESIUM OXIDE 400 MG TAB PO SCH (10:13)
[2023-06-04] MEDS: metFORMIN HYDROCHLORIDE 500 MG TAB PO SCH ×2 (10:14→21:33)
[2023-06-05] VITALS (9 sets, daily range): BP systolic 99–124; BP diastolic 49–74; PULSE 68–81; RESP 16–19; TEMP 98.1–98.2; O2SAT 87–96
[2023-06-05] MEDS: chlordiazePOXIDE HCL 25 MG CAP PO SCH ×3 (05:23→21:24)
[2023-06-05] MEDS: METOPROLOL TARTRATE 25 MG TAB PO SCH ×3 (05:24→19:31)
[2023-06-05] MEDS: FUROSEMIDE 20 MG/2 ML VIAL IV SCH ×2 (06:00→18:00)
[2023-06-05] MEDS: ACCU-CHEK COMFORT CURVE STRIP VI SCH ×4 (06:09→21:35)
[2023-06-05] MEDS: InsuLIN REG 1unit/0.01ml Soln (100units/ml) SC SCH ×4 (06:10→21:43)
[2023-06-05 06:14] LABS: Basophils # (auto) 0.1 10 ^3/uL (0-0.2); Basophils % (auto) 0.9 % (0.0-2.0); Eosinophils # (auto) 0.3 10 ^3/uL (0-0.8); Eosinophils % (auto) 4.6 % (0.0-7.0); Hematocrit 48.5 % (41.0-53.0); Hemoglobin 15.6 g/dL (13.5-17.5); Lymphocytes # (auto) 1.9 10 ^3/uL (0.4-5.4); Mean Corpuscular Hemoglobin 27.3 pg (28.0-32.0); Mean Corpuscular Hgb Conc. 32.2 g/dL (32.0-36.0); Mean Corpuscular Volume 84.5 fL (80.0-100.0); Monocytes # (auto) 1.2 10 ^3/uL (0-1.3); Neutrophils # (auto) 3.8 10 ^3/uL (1.6-8.6); Neutrophils % (auto) 52.5 % (37.0-80.0); Nucleated Red Blood Cells % 0.2 %; Red Blood Cells 5.74 10^6/uL (4.5-5.90); Red Cell Distribution Width 17.3 % (11.8-14.3); White Blood Cell 7.2 10^3/uL (4.4-10.8)
[2023-06-05 06:42] LABS: Chloride 97 mmol/L (98-107); Sodium 135 mmol/L (136-145)
[2023-06-05 06:43] LABS: Anion Gap 6 (5-15); Carbon Dioxide 32 mmol/L (20-30)
[2023-06-05 06:44] LABS: Calcium 9.4 mg/dL (8.7-10.4)
[2023-06-05 06:48] LABS: BUN/Creatinine Ratio 15.1 (10.0-20.0); Blood Urea Nitrogen 18 mg/dL (9-23); Glucose 90 mg/dL (74-106)
[2023-06-05 06:49] LABS: Magnesium 2.2 mg/dL (1.6-2.6)
[2023-06-05] MEDS: cefTRIAXone 1GM/50ML D5W 50 ML IV SCH (09:04)
[2023-06-05] MEDS: FINASTERIDE 5 MG TAB PO SCH (09:05)
[2023-06-05] MEDS: MAGNESIUM OXIDE 400 MG TAB PO SCH (09:05)
[2023-06-05] MEDS: metFORMIN HYDROCHLORIDE 500 MG TAB PO SCH ×2 (09:05→21:42)
[2023-06-05] MEDS: TAMSULOSIN HYDROCHLORIDE 0.4 MG CAP PO SCH (09:06)
[2023-06-05] MEDS: FOLIC ACID 1 MG TAB PO SCH (09:06)
[2023-06-05] MEDS: THIAMINE HCL 100 MG TAB PO SCH (09:06)
[2023-06-05] MEDS: HYDROcodone-ACET 5/325MG TAB PO PRN ×2 (15:09→23:14)
[2023-06-05] MEDS ORDERED: fentaNYL CITRATE 100 MCG/2 ML VL ONE (16:06)
[2023-06-05] MEDS ORDERED: PROPOFOL 10 MG/ML 20 ML IV ONE (16:06)
[2023-06-05] MEDS ORDERED: DexAMETHasone SOD PHOS 10MG/1ML VIAL INJ ONE (16:41)
[2023-06-05] MEDS ORDERED: ONDANSETRON HCL 4 MG/2 ML VIAL ONE (16:41)
[2023-06-05] MEDS ORDERED: MEPERIDINE HCL (25 MG/ML) 1ML VIAL ONE ×2 (16:50→16:55)
[2023-06-05] MEDS ORDERED: MIDAZOLAM HCL 2MG/2ML 2ml VIAL (1mg/ml) IV PRN (18:00)
[2023-06-05] MEDS: HYDROmorphone HCL 2 MG/ML VL/or syr IV PRN ×3 (18:12→18:32)
[2023-06-05] MEDS ORDERED: TEMAZEPAM 15 MG CAP PO ONE (22:30)
[2023-06-06] MEDS: FUROSEMIDE 20 MG/2 ML VIAL IV SCH ×2 (05:43→10:46)
[2023-06-06] MEDS: chlordiazePOXIDE HCL 25 MG CAP PO SCH ×3 (05:44→21:56)
[2023-06-06] MEDS: METOPROLOL TARTRATE 25 MG TAB PO SCH ×3 (05:44→21:56)
[2023-06-06] MEDS: ACCU-CHEK COMFORT CURVE STRIP VI SCH ×4 (06:08→21:57)
[2023-06-06 06:09] LABS: Basophils # (auto) 0 10 ^3/uL (0-0.2); Eosinophils # (auto) 0 10 ^3/uL (0-0.8); Hemoglobin 15.5 g/dL (13.5-17.5); Lymphocytes # (auto) 0.8 10 ^3/uL (0.4-5.4); Lymphocytes % (auto) 11.5 % (10.0-50.0); Mean Corpuscular Hemoglobin 27.7 pg (28.0-32.0); Mean Corpuscular Hgb Conc. 32.2 g/dL (32.0-36.0); Mean Corpuscular Volume 85.9 fL (80.0-100.0); Monocytes # (auto) 0.4 10 ^3/uL (0-1.3); Monocytes % (auto) 5.2 % (0.0-12.0); Neutrophils # (auto) 5.8 10 ^3/uL (1.6-8.6); Neutrophils % (auto) 83.3 % (37.0-80.0); Nucleated Red Blood Cells % 0.1 %; Red Blood Cells 5.59 10^6/uL (4.5-5.90); Red Cell Distribution Width 17.2 % (11.8-14.3)
[2023-06-06 06:23] LABS: Chloride 100 mmol/L (98-107); Potassium 5.5 mmol/L (3.5-5.1); Sodium 135 mmol/L (136-145)
[2023-06-06 06:24] LABS: Anion Gap 3 (5-15); Carbon Dioxide 32 mmol/L (20-30)
[2023-06-06 06:25] LABS: Calcium 8.7 mg/dL (8.5-10.1)
[2023-06-06 06:29] LABS: Glucose 138 mg/dL (74-106)
[2023-06-06 06:30] LABS: BUN/Creatinine Ratio 17.4 (10.0-20.0); Blood Urea Nitrogen 21 mg/dL (9-23)
[2023-06-06] MEDS: InsuLIN REG 1unit/0.01ml Soln (100units/ml) SC SCH ×4 (06:33→22:05)
[2023-06-06 08:00] VITALS: PULSE 78
[2023-06-06 09:00] VITALS: BP 113/77; PULSE 81; RESP 18; TEMP 98.2; O2SAT 94
[2023-06-06] MEDS: FINASTERIDE 5 MG TAB PO SCH (09:47)
[2023-06-06] MEDS: TAMSULOSIN HYDROCHLORIDE 0.4 MG CAP PO SCH (09:47)
[2023-06-06] MEDS: cefTRIAXone 1GM/50ML D5W 50 ML IV SCH (09:48)
[2023-06-06] MEDS: metFORMIN HYDROCHLORIDE 500 MG TAB PO SCH ×2 (09:48→21:55)
[2023-06-06] MEDS: FOLIC ACID 1 MG TAB PO SCH (09:48)
[2023-06-06] MEDS: THIAMINE HCL 100 MG TAB PO SCH (09:48)
[2023-06-06] MEDS: MAGNESIUM OXIDE 400 MG TAB PO SCH (09:48)
[2023-06-06] MEDS ORDERED: SODIUM ZIRCONIUM CYCL 10 GM PAK PO ONE (10:00)
[2023-06-06] MEDS: HYDROcodone-ACET 5/325MG TAB PO PRN ×2 (10:47→20:13)
[2023-06-06 13:00] VITALS: BP 119/68; PULSE 71; RESP 18; TEMP 97.9; O2SAT 97
[2023-06-06 17:00] VITALS: BP 102/62; PULSE 87; RESP 18; TEMP 97.8; O2SAT 96
[2023-06-06 19:30] VITALS: PULSE 75; RESP 19
[2023-06-06 22:00] VITALS: BP_SYST 113; BP_SYST 99; BP_DIAS 49; BP_DIAS 55; PULSE 82; PULSE 87; RESP 20; TEMP 98; TEMP 98.5; O2SAT 92; O2SAT 94
[2023-06-07] VITALS (9 sets, daily range): BP systolic 99–120; BP diastolic 45–73; PULSE 75–99; RESP 17–20; TEMP 97.9–98.8; O2SAT 89–97
[2023-06-07] MEDS: METOPROLOL TARTRATE 25 MG TAB PO SCH ×3 (05:46→21:56)
[2023-06-07] MEDS: chlordiazePOXIDE HCL 25 MG CAP PO SCH ×3 (05:46→22:00)
[2023-06-07] MEDS: ACCU-CHEK COMFORT CURVE STRIP VI SCH ×4 (05:47→22:03)
[2023-06-07] MEDS: InsuLIN REG 1unit/0.01ml Soln (100units/ml) SC SCH ×4 (05:47→22:01)
[2023-06-07] MEDS: HYDROcodone-ACET 5/325MG TAB PO PRN ×3 (05:53→19:56)
[2023-06-07 06:42] LABS: Anion Gap 5 (5-15); Carbon Dioxide 32 mmol/L (20-30); Chloride 97 mmol/L (98-107); Potassium 3.7 mmol/L (3.5-5.1); Sodium 134 mmol/L (136-145)
[2023-06-07 06:43] LABS: Calcium 8.3 mg/dL (8.7-10.4)
[2023-06-07 06:48] LABS: BUN/Creatinine Ratio 22.3 (10.0-20.0); Blood Urea Nitrogen 21 mg/dL (9-23); Glucose 90 mg/dL (74-106)
[2023-06-07] MEDS: metFORMIN HYDROCHLORIDE 500 MG TAB PO SCH ×2 (09:55→21:55)
[2023-06-07] MEDS: cefTRIAXone 1GM/50ML D5W 50 ML IV SCH (09:55)
[2023-06-07] MEDS: FINASTERIDE 5 MG TAB PO SCH (09:55)
[2023-06-07] MEDS: FOLIC ACID 1 MG TAB PO SCH (09:55)
[2023-06-07] MEDS: MAGNESIUM OXIDE 400 MG TAB PO SCH (09:56)
[2023-06-07] MEDS: TAMSULOSIN HYDROCHLORIDE 0.4 MG CAP PO SCH (09:56)
[2023-06-07] MEDS: THIAMINE HCL 100 MG TAB PO SCH (09:56)
[2023-06-07] MEDS: FUROSEMIDE 20 MG/2 ML VIAL IV SCH (09:57)
[2023-06-07] MEDS: IPRATROPIUM BROM 0.5 MG/2.5ML INH SOL NEB PRN (22:44)
[2023-06-07] MEDS: ALBUTEROL MEDNEB 2.5 mg/3ml NEB NEB PRN (22:44)
[2023-06-08 04:55] VITALS: BP 106/54; PULSE 83; RESP 18; TEMP 97.8; O2SAT 98
[2023-06-08] MEDS: chlordiazePOXIDE HCL 25 MG CAP PO SCH ×2 (06:00→14:00)
[2023-06-08] MEDS: InsuLIN REG 1unit/0.01ml Soln (100units/ml) SC SCH ×2 (06:15→11:30)
[2023-06-08] MEDS: METOPROLOL TARTRATE 25 MG TAB PO SCH ×2 (06:15→14:00)
[2023-06-08] MEDS: ACCU-CHEK COMFORT CURVE STRIP VI SCH ×2 (06:16→11:40)
[2023-06-08 08:00] VITALS: PULSE 83
[2023-06-08 09:01] VITALS: BP 116/71; PULSE 76; RESP 24; O2SAT 98
[2023-06-08 09:35] VITALS: PULSE 79; RESP 18; O2SAT 93
[2023-06-08] MEDS: ALBUTEROL MEDNEB 2.5 mg/3ml NEB NEB PRN (09:35)
[2023-06-08] MEDS: IPRATROPIUM BROM 0.5 MG/2.5ML INH SOL NEB PRN (09:35)
[2023-06-08] MEDS: metFORMIN HYDROCHLORIDE 500 MG TAB PO SCH (09:37)
[2023-06-08] MEDS: TAMSULOSIN HYDROCHLORIDE 0.4 MG CAP PO SCH (09:37)
[2023-06-08] MEDS: FINASTERIDE 5 MG TAB PO SCH (09:37)
[2023-06-08] MEDS: FOLIC ACID 1 MG TAB PO SCH (09:37)
[2023-06-08] MEDS: THIAMINE HCL 100 MG TAB PO SCH (09:37)
[2023-06-08] MEDS: MAGNESIUM OXIDE 400 MG TAB PO SCH (09:37)
[2023-06-08] MEDS: FUROSEMIDE 20 MG/2 ML VIAL IV SCH (09:38)
[2023-06-08] MEDS: cefTRIAXone 1GM/50ML D5W 50 ML IV SCH (09:38)
[2023-06-08] MEDS: HYDROcodone-ACET 5/325MG TAB PO PRN (09:40)
[2023-06-08 09:43] VITALS: PULSE 80; RESP 18; O2SAT 99
== END 2023-06-08 14:50 | disposition home or self-care (01) | DRG 713 ==
LOC: ER 05:31 → TELE-WESTW 11:13 → TELE 11:13 → TELE-WESTW 05-30 22:31
PROVIDERS: ADMIT Nurse Practitioner Family; ATTEND Internal Medicine Geriatric Medicine
PROC: 0VT08ZZ Resection of Prostate, Via Natural or Artificial Opening Endoscopic (ICD-10-PCS; principal; 2023-06-05 16:26)
DX: N40.1 Benign prostatic hyperplasia with lower urinary tract symptoms (principal); J96.01 Acute respiratory failure with hypoxia; N30.00 Acute cystitis without hematuria; R33.8 Other retention of urine; E66.01 Morbid (severe) obesity due to excess calories; I11.0 Hypertensive heart disease with heart failure; I48.91 Unspecified atrial fibrillation; E87.6 Hypokalemia; I50.9 Heart failure, unspecified; E11.9 Type 2 diabetes mellitus without complications; J44.9 Chronic obstructive pulmonary disease, unspecified; F10.20 Alcohol dependence, uncomplicated; I27.20 Pulmonary hypertension, unspecified; Z79.01 Long term (current) use of anticoagulants; Z68.39 Body mass index [BMI] 39.0-39.9, adult; Z90.79 Acquired absence of other genital organ(s); Z83.3 Family history of diabetes mellitus
CPT/HCPCS: 36415; 71045; 80048; 80053; 80061; 81001; 82962; 83735; 83880; 84154; 84484; 85025; 86850; 86900; 86901; 87081; 87086; 93306; 94640; 96365; 96375; 96376; 97110; 97116; 97163; 97530; G0378; J0696; J1100; J1815; J2405; J2704